=== PATIENT | male | born 1995 | race Two or more races ===

== ENCOUNTER 2019-04-02 13:45 | Emergency (ER) | payer OTHER ==
[2019-04-02] MEDS ORDERED: Diphtheria,Pertussis(Acell),Tetanus Vaccine 0.5 ML SDV IM ONE (13:59)
[2019-04-02] MEDS ORDERED: Bacitracin/Neomycin/Polymyxin B Oint 0.9 GM U/D Packet TOP ONE (13:59)
--- NOTE | 2019-04-02 13:59 | EDM.PDOC ---
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 The patient was working with a piece of metal sheeting when he cut his right thumb and started getting dizzy when he looked at the wound and saw the blood blood with syncopal episode and 15-30 second episode of loss of consciousness. He does have a long history of dizziness and intolerance to the sight of blood. Per history from the patient and his stocking and box shop supervisor there was no evidence of seizure activity, urine/stool incontinence, subsequent sedation, neck/back pain, paresthesias, neurological deficits, or other complaints or injuries. He is right-handed and has never injured this digit in the past. He does not know when he had his last tetanus booster. Note that the patient did fall on his face with no previous history of facial fractures, etc. despite his history of boxing in the past. Note that the patient recently moved from [place]. The patient denies any chest pain/pressure , heart flutter, orthopnea, diaphoresis, paresthesias, recent decreased exercise tolerance, or any other anginal-type symptoms. No recent history of abdominal pain, heartburn, nausea, diarrhea, melena, gross hematochezia, or any food intolerance, including fatty foods, etc.. The patient also denies any recent fever, cough, wheezing, dyspnea, etc.. No history of recent headaches, visual changes, diplopia, change in mental status, or other change in neurological status. Onset: Today, Sudden Onset Date: 04/02/19 Onset Time: 13:00 Duration: Constant Location: Reports: Face, Upper Extremity, Right. Denies: Head, Neck, Chest, Abdomen, Back, Pelvis, Upper Extremity, Left, Lower Extremity, Left, Lower Extremity, Right, Radiates to Quality: Reports: Ache, Same as Previous Episode, Sharp Severity: Mild Improves with: Reports: Rest Worsens with: Reports: Movement Context: Reports: Trauma (As above) Associated Symptoms: Reports: Syncope (As above). Denies: Confusion, Chest Pain , Diaphoresis, Fever/Chills, Malaise, Nausea/Vomiting, Rash, Seizure, Shortness of Breath, Weakness Treatments BEHAVIORAL HEALTH TECHNICIAN: Reports: Dressing(s) Right Lower Finger-Thumb Pain Score (Numeric/FACES): 2 - Related Data Allergies Allergy/AdvReac Type Severity Reaction Status Date / Time No Known Allergies Allergy Verified 04/02/19 13:58 Home Meds: Home Meds . [No Known Home Meds] 04/02/19 [History] Past Medical History HEENT History: Reports: None. Denies: Hard of Hearing, Impaired Vision Cardiovascular History: Reports: Other (See Below). Denies: High Cholesterol, Hypertension, Syncope Musculoskeletal History: Reports: Fracture, Other (See Below) Other Musculoskeletal History: Right clavicular fracture at age 17. Neurological History: Reports: Other (See Below) Other Neuro History: Recurrent dizziness with the sight of blood. Psychiatric History: Reports: Anxiety, Depression - Past Surgical History GI Surgical History: Reports: Hernia, Inguinal, Other (See Below) Other GI Surgeries/Procedures: Umbilical hernia repair at age 5. 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 ED EXAM, GENERAL - Physical Exam Exam: See Below Exam Limited By: No Limitations General Appearance: Alert, WD/WN, No Apparent Distress, Anxious (Moderate) Eye Exam: Bilateral Eye: EOMI, Normal Fundi, Normal Inspection (No nystagmus), PERRL Ears: Normal External Exam, Normal Canal, Hearing Grossly Normal, Normal TMs Nose: Nasal Tenderness (As below), Nasal Swelling (Minimal dorsal bridge swelling with superficial abrasions but no crepitation or sign of fracture. Only minimal localized tenderness), Other (Minimal bleeding from abrasion sites with only minimal previous bilateral epistaxis but no septal hematoma, acute bleeding, etc.). No: No Blood, Nasal Deformity (As below), Nasal Drainage (As above) Throat/Mouth: Normal Lips, Normal Teeth, Normal Oropharynx, Normal Voice, No Airway Compromise, Other (Minimal abrasion in the glabella region no localized tenderness, crepitation, etc.). No: Dysphagia, Inflammation, Perioral Cyanosis Head: Normocephalic, Other (Abrasions as above above). No: Atraumatic, Facial Swelling, Facial Tenderness, Sinus Tenderness Neck: Normal Inspection, Supple, Non-Tender, Full Range of Motion. No: Carotid Bruit, Lymphadenopathy (L), Lymphadenopathy (R), Thyromegaly Respiratory/Chest: No Respiratory Distress, Lungs Clear, Normal Breath Sounds, No Accessory Muscle Use, Chest Non-Tender. No: Pleural Rub, Retractions Cardiovascular: Normal Peripheral Pulses, Regular Rate, Rhythm, No Edema, No Gallop, No JVD, No Murmur, No Rub. No: Bradycardia (At time of exam), Gallop/S3 , Gallop/S4, Friction Rub Peripheral Pulses: 2+: Radial (L), Radial (R), Dorsalis Pedis (L), Dorsalis Pedis (R) GI/Abdominal: Normal Bowel Sounds, Soft, Non-Tender, No Organomegaly, No Distention, No Abnormal Bruit, No Mass, Pelvis Stable. No: Guarding (Male) Exam: Deferred Rectal (Males) Exam: Deferred Back Exam: Normal Inspection, Full Range of Motion. No: CVA Tenderness (L), CVA Tenderness (R), Muscle Spasm Extremities: No Pedal Edema, Normal Capillary Refill, Limited Range of Motion ( Minimal in the right thumb secondary to laceration with no evidence of dislocation, deformity, crepitation, fracture, etc.), Other (2.5 cm in length laceration over the dorsal aspect of the proximal phalanx of digit #1 of the right hand with no tendon or nerve involvement. No foreign body. ). No: Joint Swelling, Arm Pain, Manolo's Sign Neurological: Alert, Oriented, CN II-XII Intact, Normal Cognition, Normal Gait, Normal Reflexes (Negative Babinski's), No Motor/Sensory Deficits Psychiatric: Anxious (Moderate), Depressed Mood (Borderline) Skin Exam: Warm, Wound/Incision (As above). No: Normal Color, No Rash, Diaphoretic, Lymphangitis Lymphatic: No Adenopathy ED GENERAL MEDICAL PROCEDURES - Laceration/Wound Repair Right Proximal Dorsal Digit - 1st (Thumb) Lac/wound length in cm: 2.5 Appearance: Superficial, Linear, Clean Distal NVT: Neuro & Vascular Intact, No Tendon Injury Anesthetic Type: Local Local Anesthesia - Lidocaine (Xylocaine): 1% Plain Local Anesthetic Volume: Other (6 cc) Skin Prep: Providone-Iodine (Betadine) Saline irrigation (cc's): 0 Exploration/Debridement/Repair: Wound Explored, In a Bloodless Field, Explored to Base, No Foreign Material Found Closed with: Sutures Suture Size: 4-0 # of Sutures: 5 Suture Type: Nylon, Interrupted, Simple Drain Placement: No Sterile Dressing Applied: Nurse Tetanus Status Addressed: Yes Complications: No Course - Vital Signs Last Recorded V/S: Last Vital Signs Temp 36.1 C 04/02/19 14:03 Pulse 71 04/02/19 14:03 Resp 16 04/02/19 14:03 BP 127/79 04/02/19 14:03 Pulse Ox 100 04/02/19 14:03 Vital Signs - 24 hr 04/02/19 14:03 Temperature [ 36.1 C Temporal] Pulse, 71 Peripheral [ Right Pulse Oximetry] Respiratory 16 Rate Blood Pressure 127/79 [Right Upper Arm] O2 Sat by Pulse 100 Oximetry - Orders/Labs/Meds Orders: Active Orders 24 hr Category Date Time Status Cardiac Monitoring [RC] . DIRECTED Care 04/02/19 14:00 Active Vaccines to be Administered [RC] PER UNIT ROUTINE Care 04/02/19 14:00 Active Facial Bones Comp Min 3V [CR] Stat Exams 04/02/19 14:06 Taken Obtain Past Medical Record [OM.PC] Routine Oth 04/02/19 13:59 Active Labs: None Meds: Medications Discontinued Medications Generic Name Dose Route Start Last Admin Trade Name Freq PRN Reason Stop Dose Admin Diphtheria/Tetanus/Acell Pertussis 0.5 ml 04/02/19 13:59 04/02/19 14:20 Adacel IM 04/02/19 14:00 0.5 ml .ONCE ONE Administration Lidocaine HCl 5 ml 04/02/19 14:07 04/02/19 14:19 Xylocaine-Mpf 1% INJECT 04/02/19 14:08 5 ml ONETIME ONE Administration Lidocaine HCl 5 ml 04/02/19 14:07 04/02/19 14:19 Xylocaine-Mpf 1% INJECT 04/02/19 14:08 5 ml ONETIME ONE Administration Neomycin/Polymyxin/Bacitracin 1 each 04/02/19 13:59 04/02/19 14:19 Triple Antibiotic Oint TOP 04/02/19 14:00 1 each ONETIME ONE Administration - Radiology Interpretation Free Text/Narrative:: monitoring engineer shows normal sinus rhythm in the 60s with very occasional bradycardia in the mid to high 50s with no ectopy or arrhythmia. X-rays of the facial bones, complete, shows no evidence of fracture, dislocation , etc. Departure - Departure Time of Disposition: 15:30 Disposition: Home, Self-Care 01 Condition: Good Clinical Impression: Laceration, Bradycardia, Mixed anxiety depressive disorder Syncope Qualifiers: Syncope type: vasovagal syncope Qualified Code(s): R55 - Syncope and collapse Contusion Qualifiers: Encounter type: initial encounter Contusion area: head Contusion of head detail : nose Qualified Code(s): S00.33XA - Contusion of nose, initial encounter - Discharge Information *PRESCRIPTION DRUG MONITORING PROGRAM REVIEWED*: Not Applicable *COPY OF PRESCRIPTION DRUG MONITORING REPORT IN PATIENT GRAEME: Not Applicable Instructions: Laceration Care, Adult, [id number], Stitches, Whiting, or Adhesive Wound Closure, [id number], Syncope, [id number] Referrals: PCP,None [Primary Care Provider] - Forms: ED Department Discharge, ED Return to Work/School Form Additional Instructions: 1. Followup with your regular provider in 10-14 days as directed for reevaluation, suture removal, and reevaluation of your work restrictions. Bring these discharge instructions with you to that visit. 2. Tylenol 650 mg by mouth every 4 hours and/or OTC ibuprofen 2-3 tabs by mouth every 6 hours with food as directed./needed. You may stagger these medications for 48-72 hours only, which essentially means that you are receiving a pain medication about every 2 hours. 3. Antibacterial soap wash/soak with subsequent antibacterial dressing such as Neosporin, etc. as directed 2 times per day until the wound or laceration site completely heals. Keep the area clean and dry with activity restrictions as discussed. Never use hydrogen peroxide for wound care. 4. Work excuse- See Form 5. 10 pound lifting restriction and fall/injury precautions until released by your regular provider at follow-up as above. 6. Immediately after this visit verify that your cellular telephone's voicemail has been activated and is empty. Also verify that your home telephone 's answering machine is operating properly and has space to receive messages. Note that it is sometimes necessary for us to be able to contact you at a later date to discuss your medical care. 7. Please remember that we are ALWAYS here for you and want to answer any questions you may have. Feel free to call the hospital any time and we call you back VILMA. - Problem List & Annotations (1) Laceration SNOMED Code(s): 733673666 Code(s): EBT3459 - Status: Acute Priority: High Current Visit: Yes Onset Date: 04/02/19 Annotation/Comment:: Excellent results with laceration repair as above. DTaP given. Wound care, activity restrictions, etc. discussed. Patient does wish to return to work today. Workmen's Compensation forms and work excuse were completed today. (2) Syncope SNOMED Code(s): 133407079 Code(s): R55 - SYNCOPE AND COLLAPSE Status: Acute Priority: High Current Visit: Yes Onset Date: 04/02/19 Annotation/Comment:: Likely vasovagal syncopal episode secondary to the sight of blood especially in light of patient's history as above. Note borderline bradycardia but no neurological deficits, etc. Activity restrictions, etc. discussed. Further workup as needed depending on his clinical course. Qualifiers: Syncope type: vasovagal syncope Qualified Code(s): R55 - Syncope and collapse (3) Bradycardia SNOMED Code(s): 44055132 Code(s): R00.1 - BRADYCARDIA, UNSPECIFIED Status: Acute Priority: Medium Current Visit: Yes Onset Date: 04/02/19 Annotation/Comment:: Mild bradycardia likely overall nonsymptomatic in nature with this likely not seen etiology of his syncopal episode as above. No chest pain or anginal type symptoms. (4) Contusion SNOMED Code(s): 981649083 Code(s): T14.8XXA - OTHER INJURY OF UNSPECIFIED BODY REGION, INITIAL ENCOUNTER Status: Acute Priority: High Current Visit: Yes Onset Date: Annotation/Comment:: Minor facial contusion and abrasions as above. Wound care discussed. No evidence of significant facial injury. Qualifiers: Encounter type: initial encounter Contusion area: head Contusion of head detail: nose Qualified Code(s): S00.33XA - Contusion of nose, initial encounter (5) Mixed anxiety depressive disorder SNOMED Code(s): 760670251 Code(s): F41.8 - OTHER SPECIFIED ANXIETY DISORDERS Status: Chronic Priority: Medium Current Visit: Yes Annotation/Comment:: Known history of anxiety in the past currently not under medical therapy. Moderate control based on today's exam. Continue to observe closely by his regular providers with the patient just moving to the area as above. - Problem List Review Problem List Initiated/Reviewed/Updated: Yes - My Orders Last 24 Hours: My Active Orders 04/02/19 13:59 Obtain Past Medical Record [OM.PC] Routine 04/02/19 14:00 Cardiac Monitoring [RC] . DIRECTED Vaccines to be Administered [RC] PER UNIT ROUTINE 04/02/19 14:06 Facial Bones Comp Min 3V [CR] Stat - Assessment/Plan Last 24 Hours: My Active Orders 04/02/19 13:59 Obtain Past Medical Record [OM.PC] Routine 04/02/19 14:00 Cardiac Monitoring [RC] . DIRECTED Vaccines to be Administered [RC] PER UNIT ROUTINE 04/02/19 14:06 Facial Bones Comp Min 3V [CR] Stat Assessment:: As above Plan: As above. Extensive precautions were given to the patient and his stocking and box shop supervisor, who are in agreement with the treatment plan. See Patient Instructions for further treatment and plan.
== END 2019-04-02 15:30 | disposition home or self-care (01) ==
LOC: LL.ED 13:45
DX: S61.011A Laceration without foreign body of right thumb without damage to nail, initial encounter (principal); R55 Syncope and collapse; S00.33XA Contusion of nose, initial encounter; R00.1 Bradycardia, unspecified; F41.8 Other specified anxiety disorders; I10 Essential (primary) hypertension; Z23 Encounter for immunization; W26.8XXA Contact with other sharp object(s), not elsewhere classified, initial encounter; W19.XXXA Unspecified fall, initial encounter
CPT/HCPCS: 12001; 70150; 90471; 90715; 99283; J2001